=== PATIENT | male | born 1980 | race Caucasian/White ===

== ENCOUNTER 2021-03-04 09:12 | Inpatient (IN) ==
[2021-03-04] MEDS ORDERED: *HR* Heparin 5,000 UNIT/ML VIAL IVP ONE (09:26)
[2021-03-04] MEDS ORDERED: Aspirin 81 MG TAB.CHEW PO ONE (09:26)
[2021-03-04] MEDS ORDERED: *HR* Ticagrelor 90 MG TABLET PO ONE ×2 (09:26→09:29)
[2021-03-04] MEDS ORDERED: *HR* Heparin 5,000 UNIT/ML VIAL IVP PRN ×2 (09:26)
[2021-03-04] MEDS ORDERED: *HR* Midazolam HCl 2 MG/2 ML VIAL ONE (09:28)
[2021-03-04] MEDS ORDERED: 0.9 % Sodium Chloride 1,000 ML ONE ×3 (09:28→11:09)
[2021-03-04] MEDS ORDERED: Aspirin 325 MG TABLET PO ONE (09:28)
[2021-03-04] MEDS ORDERED: *HR* FentaNYL (PF) 100 MCG/2 ML VIAL ONE (09:28)
[2021-03-04] MEDS ORDERED: *HR* Ticagrelor 90 MG TABLET ONE (09:29)
[2021-03-04] MEDS ORDERED: Aspirin 81 MG TAB.CHEW ONE (09:29)
[2021-03-04] MEDS ORDERED: *HR* Heparin 5,000 UNIT/ML VIAL ONE (09:29)
[2021-03-04] MEDS ORDERED: Heparin 25,000UNIT/250ML 1/2NS 25,000 UNIT/250 ML IV.SOLN IVC SCH (09:30)
[2021-03-04 09:44] LABS: Basophils # 0.1 K/mcL (0.0-0.2); Basophils % 1.2 %; Eosinophils # 0.1 K/mcL (0.0-0.6); Eosinophils % 1.2 %; Hematocrit 46.4 % (37.5-50.1); Hemoglobin 15.9 g/dL (12.9-16.9); Immature Granulocytes % 0.7 % (0-4); Lymphocytes # 2.5 K/mcL (0.6-4.6); Lymphocytes % 26.7 %; Mean Corpuscular HGB Conc 34.3 g/dL (31.6-35.5); Mean Corpuscular Hemoglobin 29.4 pg (28.0-33.3); Mean Corpuscular Volume 85.9 fL (83.0-100.0); Mean Platelet Volume 9.8 fL (9.4-12.4); Monocytes # 0.8 K/mcL (0.0-1.3); Neutrophils # 5.8 K/mcL (1.6-8.9); Platelet Count 324 K/mcL (140-400); Red Cell Distribution Width 12.9 % (11.5-14.5); Segmented Neutrophils % 62.2 %; White Blood Count 9.4 K/mcL (4.3-11.1)
[2021-03-04] MEDS ORDERED: Tirofiban 12.5 MG/250ML 12.5 MG/250 ML BAG ONE (09:49)
[2021-03-04 09:55] LABS: Activated Partial Thrombo Time 36.2 Seconds (26.0-36.0)
[2021-03-04] MEDS ORDERED: *HR* Atropine Sulfate 1 MG/10 ML SYRINGE ONE (10:00)
[2021-03-04] MEDS ORDERED: ISOVUE-370 200 ML INFUS..BTL ONE ×2 (10:01→11:09)
[2021-03-04 10:05] LABS: Alanine Aminotransferase 26 Units/L (7-52); Albumin 4.7 g/dL (3.5-5.7); Albumin/Globulin Ratio 1.6 (1.1-2.2); Alkaline Phosphatase 90 Units/L (34-104); Aspartate Amino Transferase 20 Units/L (13-39); BUN/Creatinine Ratio 17 (6-26); Bilirubin,Total 0.5 mg/dL (0.3-1.0); Blood Urea Nitrogen 18 mg/dL (6-20); Calcium 9.5 mg/dL (8.6-10.3); Carbon Dioxide 23 mEq/L (23-29); Chloride 98 mEq/L (98-107); Glucose 126 mg/dL (70-105); Osmolality,Calculated 283 (280-300); Potassium 3.8 mEq/L (3.5-5.1); Sodium 135 mEq/L (136-145); Total Protein 7.7 g/dL (6.4-8.9); Troponin I < 0.03 ng/mL (< 0.04); eGFR For African Americans > 60 (> 60); eGFR For Non-African Americans > 60 (> 60)
[2021-03-04] MEDS ORDERED: Naloxone 0.4 MG/ML INJ IVP PRN (10:56)
[2021-03-04] MEDS ORDERED: Perflutren Lipid Microsphere 1.3 ML in 0.9 % Sodium Chloride 8.7 ML IVP PRN (10:56)
[2021-03-04] MEDS ORDERED: *HR* Heparin 10,000 UNIT/10 ML VIAL ONE (11:09)
[2021-03-04] MEDS ORDERED: Heparin 1,000 UNITS/500 mL 500 ML ONE (11:09)
[2021-03-04] MEDS ORDERED: Nitroglycerin 1,000 MCG/5 ML VIAL IV ONE (11:09)
[2021-03-04 11:32] LABS: Cholesterol 217 mg/dL (< 200); HDL Cholesterol 36 mg/dL (40-59); LDL Cholesterol,Calculated 116 mg/dL (< 100); Triglycerides 326 mg/dL (< 150)
[2021-03-04 11:42] LABS: Estimated Average Glucose 111 mg/dl; Hemoglobin A1C 5.5 %
[2021-03-04] MEDS ORDERED: GI Cocktail 40 ML EACH PO ONE (15:18)
[2021-03-04] MEDS: *HR* Ticagrelor 90 MG TABLET PO SCH (20:32)
[2021-03-04] MEDS: Acetaminophen 325 MG TABLET PO PRN (20:33)
[2021-03-04] MEDS: hydrOXYzine pamoate 25 MG CAPSULE PO PRN (20:33)
[2021-03-05 04:07] LABS: Basophils # 0.1 K/mcL (0.0-0.2); Basophils % 0.8 %; Eosinophils # 0.2 K/mcL (0.0-0.6); Eosinophils % 1.3 %; Hematocrit 44.4 % (37.5-50.1); Hemoglobin 15.1 g/dL (12.9-16.9); Immature Granulocytes % 0.8 % (0-4); Lymphocytes # 2.3 K/mcL (0.6-4.6); Lymphocytes % 19.3 %; Mean Corpuscular Hemoglobin 29.2 pg (28.0-33.3); Mean Corpuscular Volume 85.7 fL (83.0-100.0); Mean Platelet Volume 9.8 fL (9.4-12.4); Monocytes # 1.1 K/mcL (0.0-1.3); Monocytes % 9.1 %; Neutrophils # 8.1 K/mcL (1.6-8.9); Platelet Count 301 K/mcL (140-400); Red Blood Count 5.18 M/mcL (4.19-5.50); Segmented Neutrophils % 68.7 %; White Blood Count 11.8 K/mcL (4.3-11.1)
[2021-03-05 05:04] LABS: BUN/Creatinine Ratio 14 (6-26); Blood Urea Nitrogen 12 mg/dL (6-20); Calcium 9.3 mg/dL (8.6-10.3); Carbon Dioxide 23 mEq/L (23-29); Chloride 102 mEq/L (98-107); Glucose 99 mg/dL (70-105); Osmolality,Calculated 282 (280-300); Potassium 4.1 mEq/L (3.5-5.1); Sodium 136 mEq/L (136-145); Troponin I 5.68 ng/mL (< 0.04); eGFR For African Americans > 60 (> 60); eGFR For Non-African Americans > 60 (> 60)
[2021-03-05] MEDS: Lisinopril-HCTZ 20-12.5mg TABLET PO SCH (08:07)
[2021-03-05] MEDS: Aspirin 81 MG TAB.CHEW PO SCH (08:08)
[2021-03-05] MEDS: *HR* Ticagrelor 90 MG TABLET PO SCH ×2 (08:08→20:42)
[2021-03-05] MEDS: Acetaminophen 325 MG TABLET PO PRN ×2 (08:15→17:11)
[2021-03-05] MEDS: hydrOXYzine pamoate 25 MG CAPSULE PO PRN ×3 (09:15→20:42)
[2021-03-05] MEDS: Isosorbide MONOnitrate (24 HR) 30 MG TAB.ER.24H PO SCH (12:51)
[2021-03-06 06:44] VITALS: TEMP 98.5
[2021-03-06] MEDS: Lisinopril-HCTZ 20-12.5mg TABLET PO SCH (08:07)
[2021-03-06] MEDS: Isosorbide MONOnitrate (24 HR) 30 MG TAB.ER.24H PO SCH (08:07)
[2021-03-06] MEDS: Aspirin 81 MG TAB.CHEW PO SCH (08:07)
[2021-03-06] MEDS: *HR* Ticagrelor 90 MG TABLET PO SCH (08:07)
[2021-03-06] MEDS ORDERED: Lactobacillus 1 EACH CAP.SPRINK PO SCH (09:00)
[2021-03-06 10:24] VITALS: BP 109/65; PULSE 88; O2SAT 95
[2021-03-06] MEDS ORDERED: FLU Vac QV 21-22 (6Month+)/PF 0.5 ML SYRINGE IM ONE (11:51)
[2021-03-06] MEDS ORDERED: Moderna Covid-19 Vaccine 100MCG/0.5mL IM ONE (11:59)
== END 2021-03-06 13:34 | disposition home or self-care (01) | DRG 246 ==
LOC: EMEROOARM 09:12 → 2NNU 09:38
PROVIDERS: ADMIT Internal Medicine Cardiovascular Disease; ATTEND Internal Medicine Cardiovascular Disease